=== PATIENT | female | born 1950 | race Caucasian/White ===

== ENCOUNTER 2018-12-01 22:28 | Emergency (ER) | payer MEDICARE, OTHER ==
[~2018-12-01] VITALS: Ht 157.5 cm; Wt 74.4 kg
[~2018-12-01 22:28] MED LIST: ALBU90OI INH; CALACE667G PO; CALCIT950; CEFU250 PO; CEPH500 PO; CHOL10002; CINA30; CIPR250 PO; CLON.1; CLON.1 PO; CLON.2 PO; CLONIDINE; DOXERCALCIFEROL; DRON400T PO; EPO; ERGO400; ERGO400 PO; FAMO20 PO; FERR325; FURO40; HYDACE5 PO; LEVOTHYROXINE; LEVSOD100; LEVSOD100 PO; Lisinopril2.5 MG PO; METO25ER; NEBI10 PO; NEBI5 PO; OXYACE5T PO; POTCHL10ER; PRED10; PRED20; PROM25 PO; QUININE; RENVELA; Rena-Vite Tabl0.8 MG PO; Renvela800 MG PO; SENSIPAR; SPIHYD; [UNRECOGNIZED DRUG - CODE]; [UNRECOGNIZED DRUG - OTHER]; [UNRECOGNIZED DRUG - OTHER]
[2018-12-01 23:22] LABS: BASOPHILS ABSOLUTE AUTO 0.11 K/mm3 (0.00-0.23); BASOPHILS PERCENT AUTO 1 % (0-2); EOSINOPHILS ABSOLUTE AUTO 0.29 K/mm3 (0.00-0.68); EOSINOPHILS PERCENT AUTO 3 % (0-6); Hematocrit 40.2 % (33.0-51.0); IMMATURE GRAN ABSOLUTE AUTO 0.04 K/mm3 (0.00-0.10); IMMATURE GRAN PERCENT AUTO 0 % (0-1); LYMPHOCYTES ABSOLUTE AUTO 1.06 K/mm3 (0.84-5.20); LYMPHOCYTES PERCENT AUTO 11 % (21-46); MONOCYTES PERCENT AUTO 10 % (4-13); Mean Corpuscular HGB 33.6 pg (26.0-34.0); Mean Corpuscular HGB Conc 32.3 g/dL (31.5-36.5); Mean Corpuscular Volume 104 fL (80-100); Mean Platelet Volume 11.2 fL (9.1-12.4); NEUTROPHILS ABSOLUTE AUTO 7.09 K/mm3 (1.96-9.15); NEUTROPHILS PERCENT AUTO 74 % (41-73); Platelet Count 161 K/mm3 (150-400); RDW Coefficient Variation 13.3 % (11.7-14.2); RDW Standard Deviation 51.2 fL (35.1-46.3); Red Blood Cell Count 3.87 M/mm3 (3.80-5.20); White Blood Cell Count 9.59 K/mm3 (4.00-11.30)
[2018-12-01 23:44] LABS: Troponin I 0.02 ng/mL (0.000-0.040)
[2018-12-01 23:58] LABS: Albumin, Blood 3.2 g/dL (3.4-5.0); Albumin/Globulin Ratio 0.9 (0.8-1.8); Bilirubin, Total 0.5 mg/dL (0.1-1.0); Bun/Creatinine Ratio 12.3 (12.0-20.0); Calcium, Blood 8.6 mg/dL (8.5-10.1); Creatinine, Blood 10.5 mg/dL (0.40-1.00); Globulin, Blood 3.4 g/dL (2.2-4.0); Potassium, Blood 5.4 mmol/L (3.5-5.5); Total Protein, Blood 6.6 g/dL (6.4-8.2)
[2018-12-02] MEDS ORDERED: ONDA4ODT MM (00:34)
== END 2018-12-02 00:49 | disposition home or self-care (01) ==
LOC: ER 22:28
PROVIDERS: Physician Assistant
DX: K85.90 Acute pancreatitis without necrosis or infection, unspecified (principal); Z79.899 Other long term (current) drug therapy
CPT/HCPCS: 80053; 83690; 84484; 85025; 93005; 93010; 99284-25; A9270-GY

== ENCOUNTER → 2018-12-02 | Outpatient (CLI) | payer MEDICARE, OTHER ==
[~2018-12-02] MED LIST changes: +ONDA4ODT MM
[2018-12-02 08:48] LABS: Amylase, Blood 545 U/L (25-115)
== END | disposition home or self-care (01) ==
LOC: LAB 08:17 → LAB SHORT 08:17
PROVIDERS: Internal Medicine Nephrology
DX: R10.9 Unspecified abdominal pain (principal)
CPT/HCPCS: 82150; 83690

== ENCOUNTER → 2018-12-04 | Outpatient (CLI) | payer MEDICARE, OTHER ==
[2018-12-04 07:50] LABS: Albumin/Globulin Ratio 0.9 (0.8-1.8); Bilirubin, Direct 0.1 mg/dL (0.0-0.3); Bilirubin, Indirect 0.4 mg/dL (0.1-0.7); Bilirubin, Total 0.5 mg/dL (0.1-1.0); Globulin, Blood 3.2 g/dL (2.2-4.0); Total Protein, Blood 6.2 g/dL (6.4-8.2)
== END | disposition home or self-care (01) ==
LOC: LAB DAV 06:30
PROVIDERS: Internal Medicine Nephrology
DX: R10.9 Unspecified abdominal pain (principal)
CPT/HCPCS: 80076; 82150; 83690

== ENCOUNTER → 2018-12-06 | Outpatient (CLI) | payer MEDICARE, OTHER | END | disposition home or self-care (01) | LOC: LAB SHORT 05:00 → LAB 05:00 | DX: R19.7 Diarrhea, unspecified (principal) | CPT/HCPCS: 87493 ==

== ENCOUNTER 2020-08-15 13:04 | Observation (INO) | payer MEDICARE, OTHER ==
[~2020-08-15] VITALS: Ht 157.5 cm; Wt 81.5 kg
[2020-08-15 13:34] LABS: BASOPHILS ABSOLUTE AUTO 0.11 K/mm3 (0.00-0.23); BASOPHILS PERCENT AUTO 2 % (0-2); EOSINOPHILS ABSOLUTE AUTO 0.14 K/mm3 (0.00-0.68); EOSINOPHILS PERCENT AUTO 2 % (0-6); Hematocrit 37.4 % (33.0-51.0); Hemoglobin 11.9 g/dL (11.5-16.0); IMMATURE GRAN ABSOLUTE AUTO 0.05 K/mm3 (0.00-0.10); IMMATURE GRAN PERCENT AUTO 1 % (0-1); LYMPHOCYTES ABSOLUTE AUTO 1.38 K/mm3 (0.84-5.20); LYMPHOCYTES PERCENT AUTO 19 % (21-46); MONOCYTES ABSOLUTE AUTO 0.59 K/mm3 (0.16-1.47); MONOCYTES PERCENT AUTO 8 % (4-13); Mean Corpuscular HGB 32.2 pg (26.0-34.0); Mean Corpuscular HGB Conc 31.8 g/dL (31.5-36.5); Mean Corpuscular Volume 101 fL (80-100); Mean Platelet Volume 10.9 fL (9.1-12.4); NEUTROPHILS PERCENT AUTO 69 % (41-73); Platelet Count 174 K/mm3 (150-400); RDW Coefficient Variation 14.1 % (11.7-14.2); RDW Standard Deviation 52.2 fL (35.1-46.3); Red Blood Cell Count 3.69 M/mm3 (3.80-5.20); White Blood Cell Count 7.27 K/mm3 (4.00-11.30)
[2020-08-15 14:17] LABS: Albumin, Blood 3.3 g/dL (3.4-5.0); Albumin/Globulin Ratio 0.9 (0.8-1.8); Bilirubin, Total 0.3 mg/dL (0.1-1.0); Bun/Creatinine Ratio 8.4 (12.0-20.0); Calcium, Blood 9.4 mg/dL (8.5-10.1); Creatinine, Blood 9.56 mg/dL (0.40-1.00); Globulin, Blood 3.5 g/dL (2.2-4.0); Potassium, Blood 7.2 mmol/L (3.5-5.5); Total Protein, Blood 6.8 g/dL (6.4-8.2)
[2020-08-15] MEDS ORDERED: CINA30 PO (14:31)
[2020-08-15] MEDS ORDERED: ZINC15 PO (14:32)
[2020-08-15 16:02] LABS: Influenza A, PCR Negative (NEGATIVE); Influenza B, PCR Negative (NEGATIVE); Resp Syncytial Virus, PCR Negative (NEGATIVE); SARS-Cov-2 (COVID-19) PCR, MMC Negative (NEGATIVE)
--- NOTE | 2020-08-15 17:50 | NUR ---
SHIFT SUMMARY ASSUMED CARE AT 1700 FROM ED FOR ADMIT. TRANSFERS FROM RNEY TO BED WITHOUT DIFFICULTY. EATING SANDWHICH AND DRINKING JUICE ON ARRIVAL. LAST CHEMBG IN ER 57. A/A/OX4. REPORTS LAST DIALYSIS SUNDAY AND HAS A SUNDAY, SUN, SUN SCHEDULE. STATES SHE HAS NEVER HAD HYPERKALEMIA BEFORE AND IS NOT SURE WHAT HAPPENED. L/S CLEAR, DENIES CHEST PAIN, VSS, INDEPENDANT WITH REPOSITIONING AND RESTROOM IN ROOM. WILL CONTINUE TO MONITOR AND TREAT UNTIL CHANGE OF SHIFT.
--- NOTE | 2020-08-15 20:44 | NUR ---
IV INTACT, NO REDNESS OR SWELLING OBSERVED. HOWEVER SITE WOULD NOT FLUSH AND PT SAID IT WAS EXTREAMLY PAINFUL. DIALYSIS NURSE AT BEDSIDE AT THIS TIME TO PERFORM HEMODIALYSIS VIA AV GRAFT TO LEFT UPPER ARM. WILL REMOVE PER IV IN RIGHT ARM AFTER DIALYSIS
[2020-08-16 04:07] LABS: Albumin, Blood 2.9 g/dL (3.4-5.0); Anion Gap 8 mmol/L (6-16); Blood Urea Nitrogen 53 mg/dL (8-24); Bun/Creatinine Ratio 7.2 (12.0-20.0); CO2, Blood 33 mmol/L (21-32); Calcium, Blood 8.8 mg/dL (8.5-10.1); Chloride, Blood 94 mmol/L (98-108); Creatinine, Blood 7.33 mg/dL (0.40-1.00); Glomerular Filtration Rate 6 (60-); Glucose, Blood 81 mg/dL (70-99); Magnesium, Blood 2.6 mg/dL (1.6-2.4); Phosphorus, Blood 4.5 mg/dL (2.5-4.9); Potassium, Blood 5.8 mmol/L (3.5-5.5); Sodium, Blood 135 mmol/L (136-145)
[2020-08-16 04:07] LABS: BASOPHILS ABSOLUTE AUTO 0.07 K/mm3 (0.00-0.23); BASOPHILS PERCENT AUTO 1 % (0-2); EOSINOPHILS ABSOLUTE AUTO 0.25 K/mm3 (0.00-0.68); EOSINOPHILS PERCENT AUTO 5 % (0-6); Hematocrit 37.9 % (33.0-51.0); Hemoglobin 12.2 g/dL (11.5-16.0); IMMATURE GRAN ABSOLUTE AUTO 0.02 K/mm3 (0.00-0.10); IMMATURE GRAN PERCENT AUTO 0 % (0-1); LYMPHOCYTES ABSOLUTE AUTO 1.42 K/mm3 (0.84-5.20); LYMPHOCYTES PERCENT AUTO 26 % (21-46); MONOCYTES ABSOLUTE AUTO 0.75 K/mm3 (0.16-1.47); MONOCYTES PERCENT AUTO 14 % (4-13); Mean Corpuscular HGB 32.1 pg (26.0-34.0); Mean Corpuscular HGB Conc 32.2 g/dL (31.5-36.5); Mean Corpuscular Volume 100 fL (80-100); Mean Platelet Volume 10.3 fL (9.1-12.4); NEUTROPHILS ABSOLUTE AUTO 2.94 K/mm3 (1.96-9.15); NEUTROPHILS PERCENT AUTO 54 % (41-73); Platelet Count 158 K/mm3 (150-400); RDW Coefficient Variation 14.2 % (11.7-14.2); RDW Standard Deviation 52.3 fL (35.1-46.3); White Blood Cell Count 5.45 K/mm3 (4.00-11.30)
--- NOTE | 2020-08-16 06:17 | NUR ---
SHIFT SUMMARY A&Ox4 THROUGH SHIFT. HEMODIALYSIS ENDED AT APPROX 2200, PT RESTED COMFORTABLY THROUGH REST OF SHIFT. TELE SR IN 60s AT THIS TIME, DENIES ANY CHEST PAIN. PT REFUSING TO HAVE IV RESTARTED AT THIS TIME, INFORMED.
--- NOTE | 2020-08-16 13:41 | NUR ---
NOTIFIED DR POOL OF POTASSIUM OF 5.4
--- NOTE | 2020-08-16 15:01 | NUR ---
DISCHARGE SUMMARY PT A&OX4, VSS, LEFT FLOOR VIA WC WITH RN TO GO HOME WITH , WITH ALL PERSONAL POSSESSIONS INCLUDING DISCHARGE PACKET. DC INSTRUCTIONS PROVIDED. PT REP UNDERSTANDING THOSE INSTRUCTIONS INCLUDING FU WITH MELODY AND DR BHATTI.
--- NOTE | 2020-08-16 15:29 | NUR ---
Patient is sitting on a chair and alert. Patient immediately tells me about her long medical history, her spiritual journey and her family history. Patient also talks at length about her "end-times" theology, her views on politics, and the pandemic. She discusses the things she has learned from her 16yrs of dialysis and her appreciation for her temple, [facility]. I reinforce helpful attitudes and practices and provide inspirational recitation of scriture, therapeutic listening and prayer. Patient responds well and shows signs of having her yobani increased and her mood elevated. I will continue to remain available to patient and family.
== END 2020-08-16 14:59 | disposition home or self-care (01) ==
LOC: ER 13:04 → PCU 13:05
PROVIDERS: Emergency Medicine; ADMIT Internal Medicine Gastroenterology
DX: E87.5 Hyperkalemia (principal); E87.1 Hypo-osmolality and hyponatremia; E88.09 Other disorders of plasma-protein metabolism, not elsewhere classified; E03.9 Hypothyroidism, unspecified; I12.0 Hypertensive chronic kidney disease with stage 5 chronic kidney disease or end stage renal disease; N18.6 End stage renal disease; E87.70 Fluid overload, unspecified; D63.1 Anemia in chronic kidney disease; N25.81 Secondary hyperparathyroidism of renal origin; G47.33 Obstructive sleep apnea (adult) (pediatric); Z88.0 Allergy status to penicillin; Z88.1 Allergy status to other antibiotic agents; Z88.6 Allergy status to analgesic agent; Z88.8 Allergy status to other drugs, medicaments and biological substances; Z96.649 Presence of unspecified artificial hip joint; Z99.2 Dependence on renal dialysis; Z20.828 Contact with and (suspected) exposure to other viral communicable diseases; Z23 Encounter for immunization
CPT/HCPCS: 0241U; 36415; 80053; 80069; 82947; 83735; 84132; 85025; 93005; 93010; 93990; 96365-59; 96366-59; 96375-59; 99285-25; G0257; G0378; J0610; J1815; J2405; J7799

== ENCOUNTER 2020-11-25 11:27 | Observation (INO) | payer MEDICARE, OTHER ==
[~2020-11-25] VITALS: Ht 165.1 cm; Wt 80.4 kg
[~2020-11-25 11:27] MED LIST changes: -CHOL10002; +CINA30 PO; +VITAMIN D31000 UNI1 PO; +ZINC15 PO
[2020-11-25 12:20] LABS: BASOPHILS PERCENT AUTO 2 % (0-2); EOSINOPHILS ABSOLUTE AUTO 0.21 K/mm3 (0.00-0.68); EOSINOPHILS PERCENT AUTO 4 % (0-6); Hematocrit 37.2 % (33.0-51.0); Hemoglobin 11.9 g/dL (11.5-16.0); IMMATURE GRAN ABSOLUTE AUTO 0.04 K/mm3 (0.00-0.10); IMMATURE GRAN PERCENT AUTO 1 % (0-1); LYMPHOCYTES ABSOLUTE AUTO 1.15 K/mm3 (0.84-5.20); LYMPHOCYTES PERCENT AUTO 21 % (21-46); MONOCYTES ABSOLUTE AUTO 0.94 K/mm3 (0.16-1.47); MONOCYTES PERCENT AUTO 17 % (4-13); Mean Corpuscular HGB 32.8 pg (26.0-34.0); Mean Corpuscular Volume 103 fL (80-100); NEUTROPHILS ABSOLUTE AUTO 3.05 K/mm3 (1.96-9.15); NEUTROPHILS PERCENT AUTO 56 % (41-73); NRBC ABSOLUTE 0.03 K/mm3 (0.00-0.02); NRBC Auto 0.5 /100 WBC (0.0-0.2); RDW Coefficient Variation 15.2 % (11.7-14.2); RDW Standard Deviation 57.2 fL (35.1-46.3); Red Blood Cell Count 3.63 M/mm3 (3.80-5.20); White Blood Cell Count 5.49 K/mm3 (4.00-11.30)
[2020-11-25 12:22] LABS: International Normalized Ratio 0.93; Mean Platelet Volume 10.5 fL (9.1-12.4); Platelet Count 167 K/mm3 (150-400)
[2020-11-25 12:27] LABS: Albumin/Globulin Ratio 0.8 (0.8-1.8); Bilirubin, Total 0.4 mg/dL (0.1-1.0); Bun/Creatinine Ratio 7.3 (12.0-20.0); Calcium, Blood 9.1 mg/dL (8.5-10.1); Creatinine, Blood 6.56 mg/dL (0.40-1.00); Globulin, Blood 3.7 g/dL (2.2-4.0); Potassium, Blood 5.6 mmol/L (3.5-5.5); Total Protein, Blood 6.7 g/dL (6.4-8.2)
[2020-11-25] MEDS ORDERED: Bystolic20 MG PO (14:19)
[2020-11-25] MEDS ORDERED: NEBI10 PO (14:20)
--- NOTE | 2020-11-25 19:37 | NUR ---
SHIFT SUMMARY- PT ADMITED THROUGH THE ED, RECIEVED TELEPHONE REPORT FROM ED RN AT AROUND 1415 PT WAS SENT FROM THE ED TO MRI HEAD TO DIALYSIS. PT ARRIVED ON MEDICAL FLOOR AROUND 1840. PASSED ON THE REPORT THAT WAS RECIEVED BY TELEPHONE TO THE NIGHT RN AT THE BEDSIDE. PT IN BED CALL LIGHT IN REACH NO S&S OF DISTRESS NOTED AT THE TIME OF ARRIVAL OR SHIFT CHANGE. PT SITTING UP IN BED EATING A SANDWICH AT SHIFT CHANGE, PT STATED SHE IS NOW HAVING NO DIFFICULTY AT ALL FINDING WORDS, SPEECH SEEMS CLEAR. NIGHT RN TO COMPLETE ADMIT PROCESS.
--- NOTE | 2020-11-25 20:37 | NUR ---
ADMISSION: PATIENT WAS RECIEVED FROM DIALYSIS. ATE 100 % OF DINNER. ORIENTED TO CALL RAMIREZ AND ROOM. NO COMPLAINTS AT THIS TIME.
[2020-11-25] MEDS ORDERED: CINA30 PO (22:07)
[2020-11-26 04:56] LABS: Hematocrit 37.3 % (33.0-51.0); Hemoglobin 11.5 g/dL (11.5-16.0)
--- NOTE | 2020-11-26 04:59 | NUR ---
SHIFT SUMMARY: VSS, PAIN IS WELL CONTROLED WITH NORCO PRN. IV ABX ADMIN PER NOV. NPO SINCE [place] FOR I&D TODAY.
[2020-11-26 05:19] LABS: Alanine Aminotransfer (ALT/SGP 30 U/L (12-78); Albumin, Blood 2.9 g/dL (3.4-5.0); Albumin/Globulin Ratio 0.9 (0.8-1.8); Alk Phos 94 U/L (50-136); Anion Gap 4 mmol/L (6-16); Aspartate Aminotrans (AST/SGOT 25 U/L (12-37); Bilirubin, Total 0.6 mg/dL (0.1-1.0); Blood Urea Nitrogen 34 mg/dL (8-24); Bun/Creatinine Ratio 6.4 (12.0-20.0); CHOL/HDL RATIO 3.6; CO2, Blood 36 mmol/L (21-32); Calcium, Blood 8.7 mg/dL (8.5-10.1); Chloride, Blood 97 mmol/L (98-108); Cholesterol 153 mg/dL (50-200); Creatinine, Blood 5.31 mg/dL (0.40-1.00); Globulin, Blood 3.4 g/dL (2.2-4.0); Glomerular Filtration Rate 8 (60-); Glucose, Blood 75 mg/dL (70-99); HDL Cholesterol 42 mg/dL (>39); LDL/HDL RATIO 2.1; Low Density Lipoprotein Chol 86 mg/dL (0-110); Magnesium, Blood 2.3 mg/dL (1.6-2.4); Potassium, Blood 5.1 mmol/L (3.5-5.5); Sodium, Blood 137 mmol/L (136-145); Total Protein, Blood 6.3 g/dL (6.4-8.2); Triglycerides 124 mg/dL (30-160); Very Low Density Lipoprot Chol 25 mg/dL (6-32)
--- NOTE | 2020-11-26 12:18 | NUR ---
CARE COORDINATION REFERRAL - ADMIT:11/26/20 DISCHARGE: DX: CVA CC:[email or web address] ADMIT: 08/15/20 DISCHARGE:08/16/20 DX: HYPERKALMIA CC: KWILCOX WARREN CALL: RESIDENCE: HOME CAREGIVER: JOURDAN DE ANDA, SPOUSE / PARTNER, MALISSA, CHILD, DX: ANEMIA CHRONIC RENAL FAILURE, HTN, PAVAN, AFIB, SEE LIST DME: O2, CPAP SUPPLIES, CCM: REFERRAL 2020 HOME HEALTH: NONE SUMMARY: ADMIT: 11/25/20
[2020-11-26] MEDS ORDERED: Rena-Vite Tabl0.8 MG PO (14:51)
[2020-11-26] MEDS ORDERED: NEBI5 PO (14:51)
[2020-11-26] MEDS ORDERED: ATOR40TA PO (14:55)
[2020-11-26] MEDS ORDERED: ELIQUIS5 MG PO (14:55)
[2020-11-26] MEDS ORDERED: ASPI81CH PO (14:55)
--- NOTE | 2020-11-26 16:15 | NUR ---
DISCHARGE NOTE- PT DISCHARGED HOME. VERBAL AND WRITTEN DISCHARGE INSTRUCTIONS WERE PROVIDED AND PT WELL FAMILY ACKNOWLEDGED UNDERSTANDING OF THEM. MEDS FAXED TO [facility] PER PT REQUEST. PT ASKED MANY MEANINGFULL QUESTIONS AND HAD NO FURTHER QUESTIONS AFTER DISCHARGE EDUCATION WAS COMPLETED. PT ESCORTED OUT VIA WC BY A STAFF MEMBER.
== END 2020-11-26 19:42 | disposition home or self-care (01) ==
LOC: ER 11:27 → MEDS 11:28 → ER 14:17 → MEDS 14:17 → ENPENDDIS 11-26 13:55 → MEDS 11-26 15:37
PROVIDERS: Emergency Medicine; Internal Medicine Nephrology; ADMIT Internal Medicine
DX: I63.81 Other cerebral infarction due to occlusion or stenosis of small artery (principal); G83.21 Monoplegia of upper limb affecting right dominant side; R47.81 Slurred speech; I12.0 Hypertensive chronic kidney disease with stage 5 chronic kidney disease or end stage renal disease; N18.6 End stage renal disease; I48.0 Paroxysmal atrial fibrillation; E03.9 Hypothyroidism, unspecified; E87.5 Hyperkalemia; E87.70 Fluid overload, unspecified; D64.9 Anemia, unspecified; E88.09 Other disorders of plasma-protein metabolism, not elsewhere classified; I34.0 Nonrheumatic mitral (valve) insufficiency; I31.3 Pericardial effusion (noninflammatory); Z99.2 Dependence on renal dialysis; Z79.01 Long term (current) use of anticoagulants; Z88.1 Allergy status to other antibiotic agents; Z88.5 Allergy status to narcotic agent; Z88.0 Allergy status to penicillin; Z88.8 Allergy status to other drugs, medicaments and biological substances; Z96.649 Presence of unspecified artificial hip joint
CPT/HCPCS: 36415; 70450; 70496; 70498; 70551; 71045; 80053; 80061; 80069; 80202; 83735; 84100; 85014; 85018; 85025; 85610; 87040; 93005; 93010; 93308; 93321; 93990; 94640; 96372; 99285-25; A9270; G0257; G0378; J1644; Q9967